=== PATIENT | male | born 1965 | race Caucasian/White ===

== ENCOUNTER 2021-10-14 09:08 | Emergency (ER) | payer OTHER ==
[~2021-10-14] VITALS: Ht 175.3 cm; Wt 81.0 kg
[~2021-10-14 09:08] MED LIST: FLOMAX0.4 MG PO; IBUPROFEN 400400 M2 PO
[2021-10-14] MEDS ORDERED: LOPERAMIDE 2 MG2 M1 PO (09:49)
[2021-10-14] MEDS ORDERED: ONDANSETRON ODT4 MG PO (09:49)
[2021-10-14] MEDS ORDERED: ONDANSETRON HCL8 MG PO (09:50)
[2021-10-14] MEDS ORDERED: OLMESARTAN-HCT1 EACH PO (09:50)
[2021-10-14] MEDS ORDERED: VITAMIN D250 MCG PO (09:50)
[2021-10-14] MEDS ORDERED: ROSUVASTATIN CA10 MG PO (09:51)
[2021-10-14] MEDS ORDERED: OXYCODONE HCL E10 MG PO (09:51)
[2021-10-14] MEDS ORDERED: PROTONIX40 M2 PO (09:52)
[2021-10-14] MEDS ORDERED: FLOMAX0.4 MG PO (09:52)
[2021-10-14] MEDS ORDERED: COMPAZINE10 MG PO (09:52)
--- NOTE | 2021-10-15 10:37 | EKG ---
[place] [id number] ELECTROCARDIOGRAM REPORT Name: KOFFI FAIR [place] [place] [id number] Admission: 10/14/21 Attend Phys: Discharge: 10/14/21 Date of : 65 Date of Service: 10/14/21918 Report #: [id number] THIS REPORT FOR: //name// [facility] ED Test Date: 2021-10-14 Test Time: 09:19:42 Pat Name: KOFFI FAIR Department: Room: Gender: [employer]: : 1965 Requested By: Ruben Dxeter Order Number: [id number] MD: Chuy Hutchinson Measurements Intervals [place] Rate: 153 P: ID: QRS: 42 QRSD: 188 T: 16 QT: 331 QTc: 529 Interpretive Statements Atrial fibrillation Ventricular premature complex Right bundle branch block No previous ECG available for comparison Electronically Signed On 10-15-2021 10:36:58 [employer] by Chuy Hutchinson [email or web address] <ELECTRONICALLY SIGNED> By: Chuy Hutchinson MD, [facility] 10/15/21 1036 8 8 Chuy Hutchinson MD, FAC /EPI
== END 2021-10-14 09:37 ==
LOC: M.ERS 09:08 → EDBD 09:08 → M.ERS 09:37
DX: I46.9 Cardiac arrest, cause unspecified (principal); Z20.822 Contact with and (suspected) exposure to COVID-19; Z79.899 Other long term (current) drug therapy; Z88.0 Allergy status to penicillin